=== PATIENT | male | born 1955 | race Caucasian/White ===

== ENCOUNTER → 2016-08-26 | Outpatient (CLI) | payer OTHER, MEDICAID | LOC: BHFA 13:30 | PROVIDERS: ATTEND Internal Medicine Interventional Cardiology | DX: I25.10 Atherosclerotic heart disease of native coronary artery without angina pectoris (principal); I48.91 Unspecified atrial fibrillation; I27.2 Other secondary pulmonary hypertension; E78.5 Hyperlipidemia, unspecified; R09.02 Hypoxemia ==

== ENCOUNTER 2016-09-05 08:02 | Day surgery (SDC) | payer OTHER, MEDICAID ==
[2016-09-05] MEDS ORDERED: DIAZEPAM 5 MG TAB PO ONE (08:07)
[2016-09-05] MEDS ORDERED: diphenhydrAMINE 25 MG CAP PO ONE (08:07)
[2016-09-05] MEDS ORDERED: ceFAZolin 2 GM/DEXTROSE 100 ML IV ONE (08:07)
[2016-09-05] MEDS ORDERED: NS 1,000 ML IV ONE (08:07)
[2016-09-05] MEDS ORDERED: BACITRACIN IRRIGATION/NS 50,000 UNITS/1,000 ML BTL IRR ONE (08:07)
--- NOTE | 2016-09-05 08:39 | CPEKG ---
Heart Rate: 63 RR Interval: 952 QRSD Interval: 198 QT Interval: 468 QTC Interval: 480 QRS [place]: -61 T Wave [place]: 111 EKG Severity - ABNORMAL ECG - EKG Impression: AFIB/FLUTTER AND VENTRICULAR-PACED RHYTHM Electronically Signed By: Graham Marrufo 05-Sep-2016 12:49:56
[2016-09-05 09:07] LABS: % IMMATURE GRANULYOCYTES 0.7 % (0.0-1.1); ABSOLUTE IMMATURE GRANULOCYTES 0.07 10^3/uL (0.00-0.10); ADD DIFF? NO; ADD MORPH? NO; ADD SCAN? NO; ATYPICAL LYMPHOCYTE FLAG 0 (0-99); FRAGMENT RBC FLAG 0 (0-99); HEMATOCRIT 37.7 % (40.0-51.0); LEFT SHIFT FLG 0 (0-99); LIPEMIA HEMOLYSIS FLAG 80 (0-99); MEAN CELL HEMOGLOBIN 29.8 pg (27.9-34.1); MEAN CELL HEMOGLOBIN CONCENTR. 31.8 g/dL (32.4-36.7); MEAN CELL VOLUME 93.5 fL (81.5-99.8); MEAN PLATELET VOLUME 11.7 fL (8.7-11.7); PLATELET CLUMPS FLAG 10 (0-99); PLATELET COUNT 129 10^3/uL (150-400); RED BLOOD CELL COUNT 4.03 10^6/uL (4.40-6.38); RED CELL DISTRIBUTION WIDTH 14.5 % (11.5-15.2)
[2016-09-05 09:10] LABS: INR 1.05 (0.83-1.16); PROTIME(PATIENT) 13.6 SEC (12.0-15.0)
[2016-09-05 09:12] LABS: ANION GAP 12 mEq/L (8-16); CALCIUM 9.2 mg/dL (8.5-10.4); CARBON DIOXIDE 33 mEq/l (22-31); CHLORIDE 100 mEq/L (97-110); CREATININE 0.7 mg/dL (0.7-1.3); GLOMERULAR FILTRATION RATE > 60; GLUCOSE 71 mg/dL (70-100); POTASSIUM 3.8 mEq/L (3.5-5.2); SODIUM 145 mEq/L (134-144)
[2016-09-05] MEDS ORDERED: LIDOCAINE 1% 300 MG/30 ML SDV ONE (11:06)
[2016-09-05] MEDS ORDERED: fentaNYL 100 MCG/2 ML INJ ONE (11:07)
[2016-09-05] MEDS ORDERED: BUPIVACAINE 0.5% 30 ML SDV ONE (11:08)
[2016-09-05] MEDS ORDERED: LIDO/EPI 1% **for epidural** 30 ML SDV ONE (11:08)
--- NOTE | 2016-09-05 11:56 | PDCTREPORT ---
Cardiothoracic Procedure Rpt Cardiothoracic Procedure Report: Procedure: Pacemaker generator change in the setting of sick sinus syndrome. After obtaining informed consent patient was brought to the cardiac catheterization lab. The pacemaker site was sterilely prepped and draped. Anesthesia was present for sedation. The old scar was incised using a 10 blade. Using a combination of sharp and blunt dissection the Bovie catheter the old pacemaker pocket was entered and the old generator delivered to the field. Bacitracin soaked sponge was placed in the pocket. Leads were removed from the old device and implanted in the new device. Set screws were tightened. The old device was removed from the field. Appropriate sensitivities and thresholds were confirmed through the device. Pocket was closed using3 0 Vicryl. Subcutaneous layer was closed using 20 Vicryl. The skin was closed using strata fix. Complications: None Technical difficulties: None Conclusions: Successful pacemaker generator change. The new device is an Iltrevia 7 DR-T Ref [id number] S/N [id number] Patient Problems: Problems Problem Status Onset Elective replacement indicated for cardiac pacemaker battery at end of lifespan Acute Presence of permanent cardiac pacemaker Acute Sick sinus syndrome Acute
[2016-09-05] MEDS ORDERED: PROMETHAZINE HCL 25 MG/ML INJ IVP PRN (12:38)
[2016-09-05] MEDS ORDERED: fentaNYL 100 MCG/2 ML INJ IVP PRN (12:38)
[2016-09-05] MEDS ORDERED: NALOXONE HCL 0.4 MG/ML INJ IVP PRN ×2 (12:38→13:07)
[2016-09-05] MEDS ORDERED: OXYCODONE/APAP 5/325 TAB PO PRN (12:38)
[2016-09-05] MEDS ORDERED: ALBUTEROL 3 ML DEYVIAL IH PRN (12:38)
[2016-09-05] MEDS ORDERED: morphINE 10 MG/0.5 ML UDSYR TUBE PRN (12:52)
[2016-09-05] MEDS ORDERED: oxyCODONE ORAL SOLUTION 10 MG/0.5 ML UDSYR TUBE ONE (12:58)
--- NOTE | 2016-09-05 13:01 | POSTANESTH ---
Post Anesthetic Evaluation Cardiovascular Status: Normal, Stable Respiratory Status: Normal, Stable Level of Consciousness/Mental Status: Can Participate in Eval, Mildly Sleepy, Arousable Pain Control: Inadeq, Add Tx Required Nausea/Vomiting Control: Adequate, Prn Tx Ordered Complications Possibly Related to Anesthesia: None Noted (Pain is his chronic pain. He does not have any post-surgcal pain. Pt is due for his regular home narcotics, so we are giving him those via his G-tube.)
[2016-09-05 14:27] VITALS: RESP 16; O2SAT 96
[2016-09-05 14:57] VITALS: PULSE 84; TEMP 98.1
[2016-09-05 15:33] VITALS: BP 135/77
== END 2016-09-05 15:23 | disposition home or self-care (01) ==
LOC: FCATH 08:02
PROVIDERS: ATTEND Internal Medicine Interventional Cardiology
PROC: 0JH606Z Insertion of Pacemaker, Dual Chamber into Chest Subcutaneous Tissue and Fascia, Open Approach (ICD-10-PCS; principal; 2016-09-05)
PROC: 0JPT0PZ Removal of Cardiac Rhythm Related Device from Trunk Subcutaneous Tissue and Fascia, Open Approach (ICD-10-PCS; principal; 2016-09-05)
DX: Z45.010 Encounter for checking and testing of cardiac pacemaker pulse generator [battery] (principal); I49.5 Sick sinus syndrome; I25.10 Atherosclerotic heart disease of native coronary artery without angina pectoris; I48.91 Unspecified atrial fibrillation; G47.33 Obstructive sleep apnea (adult) (pediatric); I27.2 Other secondary pulmonary hypertension; J44.9 Chronic obstructive pulmonary disease, unspecified; M06.9 Rheumatoid arthritis, unspecified; D64.9 Anemia, unspecified; Z87.891 Personal history of nicotine dependence; Z95.5 Presence of coronary angioplasty implant and graft
CPT/HCPCS: C1785; J0690; J3010

== ENCOUNTER → 2017-07-10 | Outpatient (CLI) | payer OTHER, MEDICAID | LOC: BMCIMAGING 16:19 | PROVIDERS: ATTEND Internal Medicine Rheumatology | DX: M06.842 Other specified rheumatoid arthritis, left hand (principal) ==